=== PATIENT | male | born 1950 | race Hispanic/Latino ===

== ENCOUNTER → 2018-12-17 | Day surgery (SDC) | payer MEDICARE ==
[~2018-12-17] MED LIST: FENTANYL CITRATE/PF 100MCG/2 ML INJ ONE; IBUPROFEN400 MG PO; MIDAZOLAM HCL 2 MG/2 ML VIAL ONE; PROPOFOL IV EMULSION 10 MG/ML 20 ML VIAL ONE; TYLENOL 4 PO
[2018-12-17 12:49] LABS: BASOPHILS % 0.3 % (0.0-1.0); EOSINOPHILS # (AUTO) 0.1 (0.0-0.4); EOSINOPHILS % 0.9 % (0.0-6.0); HEMATOCRIT 45.8 % (38.2-49.6); HEMOGLOBIN 15.9 g/dL (14.0-18.0); LYMPHOCYTES % 45.5 % (18.0-39.1); MEAN CORPUSCULAR HEMOGLOBIN 34.2 pg (28-32); MEAN CORPUSCULAR HGB CONC 34.7 g/dL (31-35); MEAN CORPUSCULAR VOLUME 98.5 fL (81-99); MONOCYTES # (AUTO) 0.4 (0.2-0.8); MONOCYTES % 5.3 % (4.4-11.3); NEUTROPHILS # (AUTO) 3.2 (2.1-6.9); NEUTROPHILS % 47.7 % (38.7-80.0); PLATELET COUNT 101 x10e3/uL (140-360); RED BLOOD COUNT 4.65 x10e6/uL (4.3-5.7); RED CELL DISTRIBUTION WIDTH 12.3 % (11.7-14.4)
[2018-12-17 14:45] VITALS: BP 120/79
[2018-12-17 16:30] LABS: PLATELET ESTIMATE ADEQUATE; PLATELET MORPHOLOGY COMMENT NORMAL; RBC MORPHOLOGY COMMENT NORMAL
== END | disposition home or self-care (01) ==
LOC: OR 11:57
PROVIDERS: ATTEND Internal Medicine Gastroenterology
DX: Z12.11 Encounter for screening for malignant neoplasm of colon (principal); D12.4 Benign neoplasm of descending colon; D12.3 Benign neoplasm of transverse colon; B18.2 Chronic viral hepatitis C; E66.3 Overweight; Z68.29 Body mass index [BMI] 29.0-29.9, adult; Z71.3 Dietary counseling and surveillance; R74.8 Abnormal levels of other serum enzymes
CPT/HCPCS: 36415; 45385; 85025; 93005; J2250; J2704

== ENCOUNTER → 2022-03-17 | Outpatient (CLI) | payer MEDICARE ==
[~2022-03-17] MED LIST changes: -FENTANYL CITRATE/PF 100MCG/2 ML INJ ONE; -MIDAZOLAM HCL 2 MG/2 ML VIAL ONE; -PROPOFOL IV EMULSION 10 MG/ML 20 ML VIAL ONE
== END ==
LOC: RAD 10:38
PROVIDERS: ATTEND Family Medicine
DX: R07.81 Pleurodynia (principal)
CPT/HCPCS: 71101

== ENCOUNTER 2024-08-21 09:42 | Emergency (ER) | payer MEDICARE ==
[~2024-08-21] VITALS: Ht 177.8 cm; Wt 80.3 kg
[2024-08-21 09:48] VITALS: PULSE 54; RESP 18; TEMP 97.7; O2SAT 99
[2024-08-21] MEDS ORDERED: IBUPROFEN200 MG PO (10:15)
[2024-08-21] MEDS ORDERED: DOXYCYCLINE HY100 MG PO (10:15)
[2024-08-21] MEDS ORDERED: TYLENOL325 MG PO (10:15)
== END 2024-08-21 11:05 | disposition home or self-care (01) ==
LOC: FSED 09:46
DX: L03.032 Cellulitis of left toe (principal); M54.50 Low back pain, unspecified; E11.9 Type 2 diabetes mellitus without complications; K76.9 Liver disease, unspecified; F17.210 Nicotine dependence, cigarettes, uncomplicated
CPT/HCPCS: 72100; 99283

== ENCOUNTER 2024-10-28 17:37 | Emergency (ER) | payer MEDICARE ==
[~2024-10-28] VITALS: Ht 172.7 cm; Wt 77.2 kg
[~2024-10-28 17:37] MED LIST changes: +DOXYCYCLINE HY100 MG PO; +IBUPROFEN200 MG PO; +TYLENOL325 MG PO
[2024-10-28] MEDS ORDERED: LANTUS 3ML100 UNITS/ SQ (18:07)
[2024-10-28] MEDS ORDERED: LACTULOSE20 GM/30 M PO (18:07)
[2024-10-28] MEDS ORDERED: FINASTERIDE5 MG PO (18:07)
[2024-10-28] MEDS ORDERED: FLOMAX0.4 MG PO (18:07)
[2024-10-28] MEDS: SODIUM CHLORIDE 0.9% 1000ML 1,000 ML IV ONE (18:13)
[2024-10-28 18:50] VITALS: PULSE 53; RESP 14; TEMP 98.5
[2024-10-28 19:31] VITALS: BP 136/70; PULSE 78; RESP 16; TEMP 97.9; O2SAT 98
== END 2024-10-28 19:34 | disposition home or self-care (01) ==
LOC: FSED 17:39
DX: E11.65 Type 2 diabetes mellitus with hyperglycemia (principal); E86.0 Dehydration; E86.1 Hypovolemia; K76.9 Liver disease, unspecified; Z11.52 Encounter for screening for COVID-19
CPT/HCPCS: 0223U; 36415; 80053; 81003; 82948; 85025; 87400; 99284; J7030

== ENCOUNTER 2024-11-24 02:52 | Emergency (ER) | payer MEDICARE ==
[~2024-11-24] VITALS: Ht 177.8 cm; Wt 77.1 kg
[~2024-11-24 02:52] MED LIST changes: +FINASTERIDE5 MG PO; +FLOMAX0.4 MG PO; +LACTULOSE20 GM/30 M PO; +LANTUS 3ML100 UNITS/ SQ
[2024-11-24] MEDS: KETOROLAC TROMETHAMINE 30 MG/ML VIAL INJ STA (04:27)
[2024-11-24 04:50] VITALS: PULSE 78; RESP 16; TEMP 97.9
[2024-11-24 04:51] VITALS: BP 148/88; PULSE 78; RESP 18; TEMP 97.9; O2SAT 99
== END 2024-11-24 04:56 | disposition home or self-care (01) ==
LOC: FSED 03:13
DX: M25.511 Pain in right shoulder (principal); S46.811A Strain of other muscles, fascia and tendons at shoulder and upper arm level, right arm, initial encounter; X50.1XXA Overexertion from prolonged static or awkward postures, initial encounter; Y92.89 Other specified places as the place of occurrence of the external cause; I10 Essential (primary) hypertension; E11.9 Type 2 diabetes mellitus without complications; F17.210 Nicotine dependence, cigarettes, uncomplicated
CPT/HCPCS: 73030; 96372; 99283; J1885

== ENCOUNTER → 2024-12-12 | Day surgery (SDC) | payer MEDICARE ==
[2024-12-09 16:28] LABS: BASOPHILS % 0.2 % (0.0-1.0); EOSINOPHILS % 0.7 % (0.0-6.0); HEMATOCRIT 38.9 % (38.2-49.6); HEMOGLOBIN 13.6 g/dL (14.0-18.0); LYMPHOCYTES # (AUTO) 1.6 (1.0-3.2); LYMPHOCYTES % 36.3 % (18.0-39.1); MEAN CORPUSCULAR HEMOGLOBIN 34.7 pg (28-32); MEAN CORPUSCULAR VOLUME 99.2 fL (81-99); MONOCYTES # (AUTO) 0.3 (0.2-0.8); MONOCYTES % 7.2 % (4.4-11.3); NEUTROPHILS # (AUTO) 2.4 (2.1-6.9); NEUTROPHILS % 55.4 % (38.7-80.0); PLATELET COUNT 52 x10e3/uL (140-360); RED BLOOD COUNT 3.92 x10e6/uL (4.3-5.7); RED CELL DISTRIBUTION WIDTH 13.5 % (11.7-14.4)
[2024-12-09 16:42] LABS: INR 1.07; PROTHROMBIN TIME 14.6 seconds (11.9-14.5)
[2024-12-09 16:43] LABS: PARTIAL THROMBOPLASTIN TIME 31.8 seconds (23.8-35.5)
[2024-12-09 16:49] LABS: ALBUMIN 3.2 g/dL (3.5-5.0); ANION GAP 13.5 mmol/L (8-16); CALCIUM 8.5 mg/dL (8.4-10.2); CREATININE, SERUM 0.77 mg/dL (0.72-1.25); POTASSIUM 3.5 mmol/L (3.5-5.1); TOTAL PROTEIN 6.4 g/dL (6.5-8.1)
[2024-12-09 18:40] LABS: PLATELET ESTIMATE MARKEDLY DECREASED; PLATELET MORPHOLOGY COMMENT NORMAL
[~2024-12-12] MED LIST changes: +GLYCOPYRROLATE INJ 0.2 MG/ML VIAL ONE; +LIDOCAINE HCL 2% LOCAL INJ 5 ML SDV VIAL INJ ONE; +PROPOFOL IV EMULSION 10 MG/ML 20 ML VIAL ONE
[2024-12-12] MEDS: LACTATED RINGER'S 1,000 ML ONE (06:47)
[2024-12-12 07:56] VITALS: TEMP 97.9
[2024-12-12 08:25] VITALS: BP 138/83; PULSE 53; RESP 14; O2SAT 96
== END | disposition home or self-care (01) ==
LOC: OR 05:27
PROVIDERS: ATTEND Internal Medicine Gastroenterology
DX: K92.1 Melena (principal); K63.5 Polyp of colon; K57.30 Diverticulosis of large intestine without perforation or abscess without bleeding; K64.8 Other hemorrhoids; E11.9 Type 2 diabetes mellitus without complications; K74.60 Unspecified cirrhosis of liver; Z71.3 Dietary counseling and surveillance; D64.9 Anemia, unspecified; F41.9 Anxiety disorder, unspecified; F17.210 Nicotine dependence, cigarettes, uncomplicated; Z01.810 Encounter for preprocedural cardiovascular examination; Z01.812 Encounter for preprocedural laboratory examination; Z79.4 Long term (current) use of insulin; Z79.899 Other long term (current) drug therapy; Z68.26 Body mass index [BMI] 26.0-26.9, adult
CPT/HCPCS: 36415 ×2; 45385; 80053; 82948; 85025; 85610; 85730; 88305; 93005; J2003; J2704; J7121; 45378